=== PATIENT | female | born 1935 | race Caucasian/White ===

== ENCOUNTER → 2023-01-05 | Outpatient (CLI) | payer MEDICARE ==
[~2023-01-05] MED LIST: ASPI81CH PO; KETO10 PO; LISI20 PO; LOSARTAN POTAS100 MG PO; OXYACE5T PO; PRED20 PO; PROM25 PO; TAMS.4ER PO
[2023-01-05 14:14] LABS: International Normalized Ratio 1.92; Prothrombin Time Results 19.4 Sec (9.7-11.5)
== END | disposition home or self-care (01) ==
LOC: LAB SHORT 08:52 → LAB 08:52
PROVIDERS: Family Medicine
DX: I48.91 Unspecified atrial fibrillation (principal)
CPT/HCPCS: 85610

== ENCOUNTER → 2023-02-12 | Outpatient (CLI) | payer MEDICARE ==
[2023-02-12 13:53] LABS: International Normalized Ratio 2.3
== END | disposition home or self-care (01) ==
LOC: LAB SHORT 08:40 → LAB 08:40
PROVIDERS: Family Medicine
DX: I48.91 Unspecified atrial fibrillation (principal)
CPT/HCPCS: 85610

== ENCOUNTER → 2023-03-11 | Outpatient (CLI) | payer MEDICARE ==
[2023-03-11 19:57] LABS: International Normalized Ratio 1.91; Prothrombin Time Results 19.3 Sec (9.7-11.5)
== END | disposition home or self-care (01) ==
LOC: LAB 14:56 → LAB SHORT 14:56
PROVIDERS: Family Medicine
DX: I48.91 Unspecified atrial fibrillation (principal)
CPT/HCPCS: 85610